=== PATIENT | female | born 1990 | race Caucasian/White ===

== ENCOUNTER → 2020-05-30 | Outpatient (REF) | payer OTHER ==
[~2020-05-30] MED LIST: BIRTH CONTROL PILLS PO; IBUP-1022 PO; LOPR1TAB6 PO; METF500T13 PO; ORTH1TAB8 PO
[2020-05-30 15:31] LABS: HEMATOCRIT 35.8 % (36.0-47.0); HEMOGLOBIN 12.3 g/dl (12.0-15.5); MEAN CORPUSCULAR HEMOGLOBIN 29.4 pg (27.0-33.0); MEAN CORPUSCULAR HGB CONC 34.4 g/dl (32.0-36.5); MEAN CORPUSCULAR VOLUME 85.6 fl (80.0-96.0); PLATELET COUNT, AUTOMATED 309 10^3/uL (150-450); RED BLOOD COUNT 4.18 10^6/uL (4.00-5.40); WHITE BLOOD COUNT 12.9 10^3/uL (4.0-10.0)
[2020-05-30 16:07] LABS: ALT/SGPT 21 U/L (12-78); BILIRUBIN,TOTAL 0.4 MG/DL (0.2-1.0); FREE T4 1.13 NG/DL (0.76-1.46); GLOMERULAR FILTRATION RATE > 60.0 (>60); LDH LACTATE DEHYDROGENASE 164 U/L (84-246); URIC ACID 4.4 MG/DL (2.6-6.0)
[2020-05-30 16:44] LABS: HIV 1&2 SCREEN CENTAUR NEGATIVE (NEGATIVE)
[2020-06-01 11:25] LABS: HEPATITIS C VIRUS ABY INDEX 0.1 INDEX (<0.8)
== END ==
LOC: M PLALAB 14:04
PROVIDERS: ATTEND Advanced Practice Midwife
DX: O24.919 Unspecified diabetes mellitus in pregnancy, unspecified trimester (principal)

== ENCOUNTER → 2020-07-31 | Outpatient (CLI) | payer OTHER ==
--- NOTE | 2020-08-17 08:53 | REP ---
COMPLETE OBSTETRICAL ULTRASOUND CLINICAL: Anatomic assessment. TECHNIQUE: Transabdominal obstetrical ultrasound with color Doppler evaluation. FINDINGS: Ultrasound examination demonstrates a single live intrauterine in variable presentation. motion was identified by the technologist. Placenta noted posteriorly/right lateral and grade 1 without evidence for placenta previa or abruption. Amniotic fluid is normal. Cervix measures 3.3 cm in length and appears closed. Gestational age by last menstrual period (LMP) 19 weeks 0 days. Estimated date of delivery 12/25/2020. Gestational age by current measurements 18 weeks 4 days with estimated date of delivery 12/28/2020. heart rate 155 beats per minute. Estimated weight by current measurements 256 grams (32nd percentile). Anatomical assessment demonstrates normal cranium, choroid plexus, ventricles, posterior fossa/cerebellum, cisterna magna, four chamber heart, stomach, kidneys, bladder, spine, extremities, and three-vessel cord/cord insertion. Limited evaluation of the facial features, cardiac ventricular outflow tracts, and diaphragm noted. IMPRESSION: Single live intrauterine in variable presentation demonstrating appropriate interval growth. Anatomical limitations as noted above may warrant reevaluation and follow-up. MTDD
== END ==
LOC: M WHC 07:53
PROVIDERS: ATTEND Advanced Practice Midwife
DX: Z34.02 Encounter for supervision of normal first pregnancy, second trimester (principal); Z3A.18 18 weeks gestation of pregnancy

== ENCOUNTER → 2020-08-17 | Outpatient (REF) | payer OTHER | LOC: M SFHCWAGY 13:14 | PROVIDERS: ATTEND Obstetrics & Gynecology | DX: Z3A.21 21 weeks gestation of pregnancy (principal) ==

== ENCOUNTER → 2020-08-31 | Outpatient (CLI) | payer OTHER ==
--- NOTE | 2020-08-31 11:22 | REP ---
INDICATION: F/U ANATOMY COMPARISON: 07/31/2020 TECHNIQUE: Transabdominal obstetrical ultrasound with color Doppler evaluation. FINDINGS: Examination demonstrates a single live intrauterine in cephalic presentation. motion is identified by technologist. Placenta is noted posterior/right lateral and grade 1 without evidence for placenta previa or abruption. Amniotic fluid volume is normal. Cervix measures 3.6 cm in length and appears closed. No evidence for nuchal cord. Gestational age by LMP 23 weeks 3 days with MARYLOU 12/25/2020. Gestational age by current measurements 22 weeks 4 days with MARYLOU 12/31/2020. FHR equals 146 beats per minute. Estimated weight 512 grams (12thpercentile). Anatomical assessment demonstrates normal structures including cranium, facial features, lungs, cardiac outflow tracts, diaphragm, stomach, cord insertion, kidneys/bladder, spine. IMPRESSION: Single live intrauterine in cephalic presentation. In conjunction with prior examination abdominal assessment is complete and normal. <Electronically signed by Chi Robb > 08/31/20 [id number]
== END ==
LOC: M WHC 08:17
PROVIDERS: ATTEND Obstetrics & Gynecology
DX: O24.312 Unspecified pre-existing diabetes mellitus in pregnancy, second trimester (principal); Z36.2 Encounter for other antenatal screening follow-up; Z3A.23 23 weeks gestation of pregnancy

== ENCOUNTER → 2020-09-14 | Outpatient (REF) | payer OTHER ==
[2020-09-14 10:56] LABS: HEMATOCRIT 35.8 % (36.0-47.0); HEMOGLOBIN 12.2 g/dl (12.0-15.5); MEAN CORPUSCULAR HEMOGLOBIN 30.3 pg (27.0-33.0); MEAN CORPUSCULAR HGB CONC 34.1 g/dl (32.0-36.5); MEAN CORPUSCULAR VOLUME 88.8 fl (80.0-96.0); PLATELET COUNT, AUTOMATED 272 10^3/uL (150-450); RED BLOOD COUNT 4.03 10^6/uL (4.00-5.40); WHITE BLOOD COUNT 13.3 10^3/uL (4.0-10.0)
[2020-09-14 11:25] LABS: HEMOGLOBIN A1c 5.8 %
== END ==
LOC: M PLALAB 09:07
PROVIDERS: ATTEND Specialist
DX: O24.012 Pre-existing type 1 diabetes mellitus, in pregnancy, second trimester (principal); Z3A.00 Weeks of gestation of pregnancy not specified

== ENCOUNTER → 2020-10-19 | Outpatient (CLI) | payer OTHER ==
--- NOTE | 2020-10-19 08:01 | REP ---
INDICATION: DIABETES,HYPERTENSION,GROWTH COMPARISON: 08/31/2020 TECHNIQUE: Transabdominal obstetrical ultrasound with color Doppler evaluation. FINDINGS: Examination demonstrates a single live intrauterine in cephalic presentation. motion is identified by technologist. Placenta is noted fundal and grade 2 without evidence for placenta previa or abruption. Amniotic fluid volume is normal. Cervix measures 3.1 cm in length and appears closed.. Gestational age by LMP 30 weeks 3 days with MARYLOU 12/25/2020. Gestational age by current measurements 28 weeks 1 day with MARYLOU 01/10/2021. FHR equals 134 beats per minute. BPD: 7.2 cm 29 weeks 0 days HC: 26.0 cm 28 weeks 2 days AC: 23.0 cm 27 weeks 3 days FL: 5.3 cm 28 weeks 0 days HL: 4.8 cm 28 weeks 0 days HC/AC: 1.13 Estimated weight 1124 grams (less than 3rdpercentile). PARRISH: 10.2 cm IMPRESSION: Single live intrauterine in cephalic presentation demonstrating less than expected interval growth. Correlation is required. No obvious sonographic abnormality noted. <Electronically signed by Chi Robb > 10/19/20 [id number]
== END ==
LOC: M WHC 06:25
PROVIDERS: ATTEND Obstetrics & Gynecology
DX: O24.313 Unspecified pre-existing diabetes mellitus in pregnancy, third trimester (principal); O10.913 Unspecified pre-existing hypertension complicating pregnancy, third trimester; Z3A.30 30 weeks gestation of pregnancy

== ENCOUNTER 2020-10-26 22:05 | Inpatient (IN) | payer OTHER ==
[~2020-10-26] VITALS: Ht 157.5 cm; Wt 102.1 kg
[2020-10-26 22:41] VITALS: BP 159/90
[2020-10-26 23:07] VITALS: BP 158/82
[2020-10-26 23:07] LABS: HEMATOCRIT 32.4 % (36.0-47.0); HEMOGLOBIN 10.9 g/dl (12.0-15.5); MEAN CORPUSCULAR HEMOGLOBIN 29.4 pg (27.0-33.0); MEAN CORPUSCULAR HGB CONC 33.6 g/dl (32.0-36.5); MEAN CORPUSCULAR VOLUME 87.3 fl (80.0-96.0); PLATELET COUNT, AUTOMATED 143 10^3/uL (150-450); RED BLOOD COUNT 3.71 10^6/uL (4.00-5.40); WHITE BLOOD COUNT 11.7 10^3/uL (4.0-10.0)
--- NOTE | 2020-10-26 23:11 | IPNPDOC ---
Text Note Date of Service The patient was seen on 10/26/20. NOTE Outpatient Subjective: Jessica is a 30 y/o at 31.3wks by LMP 03/20/20, EDC 12/25/2020. She presents to L&D today with a c/o elevated blood pressures at home 153-176/103-113 after taking her nightly Labetalol 200mg. Reports last meal at 5pm, and she took her insulin tonight as well. Denies headache, visual disturbances, epigastric pain, nausea/vomiting. Denies LOF, vaginal bleeding, contractions. Reports active movement. Obstetrical Hx.: Last growth U/S on 10/19/20 showed IUGR <3% Medical Hx.: Type 2 Diabetes on insulin, Hypertension, Hypothyroidism Surgical Hx.: Cholecystectomy 2014 Family Hx.: Cardiac defects, stroke, asthma Medications: Labetalol HCL 200mg BID Levothyroxine 25mcg Daily Novolin R 10 units at breakfast, 8 units at dinner Novolin N 20units at breakfast, 8 units at dinner Baby Aspirin 81mg Daily Vitamin and DHA 200mg daily Objective: VSS as below, BP 159/90 on arrival. General: Alert and oriented x3. Respiratory: Regular rate, no accessory muscle use. Abdomen: Soft, non tender. Extremities: +1 pitting edema in left leg to knee, +2 pitting edema in right leg to knee, no calf tenderness Neurologic: Grossly intact, DTRs +1 bilaterally. Fetus: Category 2 FHT, 150bpm baseline, minimal variability, no accelerations, no decelerations. Assessment: Category 2 FHT, Elevated BP with history of HTN, IUP at 31.3wks. Plan: 1. Preeclamptic labs, glucose, and HgbA1C 2. BPP and NST 3. Consult with Jaqueline Mathew CNM Oct 26, 2020 23:11
[2020-10-26 23:27] VITALS: BP 186/100
[2020-10-26 23:29] VITALS: BP 171/103
[2020-10-26 23:30] LABS: HEMOGLOBIN A1c 5.9 %
[2020-10-26 23:38] LABS: ALT/SGPT 62 U/L (12-78); BILIRUBIN,TOTAL 0.2 MG/DL (0.2-1.0); CREATININE FOR GFR 0.62 MG/DL (0.55-1.30); GLOMERULAR FILTRATION RATE > 60.0 (>60); GLUCOSE,RANDOM 145 MG/DL (LESS THAN 200); LDH LACTATE DEHYDROGENASE 386 U/L (84-246)
[2020-10-26 23:58] VITALS: BP 152/88
[2020-10-27] VITALS (30 sets, daily range): BP systolic 133–196; BP diastolic 77–115
--- NOTE | 2020-10-27 00:19 | REPVR ---
PROCEDURE INFORMATION: Exam: US Biophysical Profile Without Non-Stress Test Exam date and time: 10/26/2020 11:29 PM Age: 30 years old Clinical indication: Other: HTN, diabetes; ; Additional info: Iugr, HTN, diabetes TECHNIQUE: Imaging protocol: US biophysical profile without non-stress testing. COMPARISON: OBS LIMITED US 10/19/2020 7:05 AM FINDINGS: Gestation: Single viable intrauterine gestation. heart rate: heart rate is 156 bpm. Presentation: Vertex presentation. Placenta: Posterior fundal placenta. Amniotic fluid index: Amniotic fluid index is 13 cm. BIOPHYSICAL PROFILE: Breathin/2 Gross body movements: 2/2 tone: 2/2 Qualitative amniotic fluid: 2/2 Biophysical Profile Score: 8/8 MATERNAL ANATOMY: Cervix: Cervical length is 4 cm. IMPRESSION: Single viable intrauterine gestation. Total biophysical profile score is 8/8. Electronically signed by: Errol Shin On 10/27/2020 00:19:23 AM
[2020-10-27 00:34] LABS: TOTAL PROTEIN,RANDOM URINE 101.4 MG/DL (0.0-12.0)
--- NOTE | 2020-10-27 00:51 | IPNPDOC ---
Text Note Date of Service The patient was seen on 10/27/20. NOTE Outpatient Current BP 149/86 Category 2 tracing, FHR 145bpm baseline, minimal variability, no decelerations, no accelerations. No UC noted by [place]. Consulted with Dr. Fairbanks about patient status including trending labs and current BPP 06/23. Plan to start 24hr urine, monitor BPs overnight, and give Betamethasone. VS,Fishbone, I+O VS, Fishbone, I+O Laboratory Tests 10/26/20 22:58 Vital Signs Date Time Temp Pulse Resp B/P (MAP) Pulse Ox O2 Delivery O2 Flow Rate FiO2 10/26/20 23:07 75 18 158/82 (107) Jaqueline Celestin CNM Oct 27, 2020 00:51
[2020-10-27] MEDS ORDERED: BETAMETHASONE SOLUSPAN 6MG/ML 5ML VIAL (J0702 PER 3MG) IM SCH (01:00)
[2020-10-27] MEDS ORDERED: LABETALOL 100MG/20ML VIAL IV STA ×2 (03:45→04:46)
[2020-10-27] MEDS ORDERED: LR 1,000 ML IV SCH ×2 (04:15→05:33)
[2020-10-27] MEDS ORDERED: hydrALAZINE 20MG/ML 1ML VIAL (J0360 PER 20MG) IV ONE ×3 (05:00→08:00)
[2020-10-27] MEDS ORDERED: MAG Sulf (L&D) 4 GM/100 ML 4 GM in IV 1 EA IV ONE (05:45)
[2020-10-27] MEDS ORDERED: MAG Sulf (OBGYN) 20GM/500ML 20,000 MG in IV 1 EA IV SCH (06:00)
[2020-10-27] MEDS ORDERED: LEVOTHYROXINE 25MCG TABLET (0.025MG) PO SCH (06:00)
--- NOTE | 2020-10-27 06:04 | HPEPDOC ---
Obstetrical History & Physical General Date of Admission 10/27/20 History of Present Illness Jessica is a 30 y/o at 31.4 weeks EDC 12/25/2020 by LMP 03/20/20. She presented to L&D with elevated BPs at home after taking her nightly Labetalol. History is significant for essential HTN; Type 2 DM on metformin prior to switched to insulin; and Hypothyroidism. Labs collected tonight support diagnosis of preeclampsia, see below. She was given 2 doses of Labetalol IVP, then Hydralazine IVP due to severe range BPs without effect. Per consult with Dr. Fairbanks a 24hr urine was started and Magnesium is to be started . She denies chest pain, SOB, epigastric pain, headache, visual disturbances. Reports active movement and denies vaginal bleeding, contractions, LOF. Chief Complaint: Pre-eclamsia Information Provided By: Patient Age: 30 : 1 (0) Term: 0 (0) Pre-term: 0 Abortions: 0 Livin Care Care: Good Care Dating Final EDC: Dec 25, 2020 Final EDC by: LMP LMP: March 20, 2020 Weeks + Days: 31.4 Antepartum Course Height (inches): 62 Pre- weight (lbs.): 195 Admission Weight (lbs.): 225 Change in Weight (lbs.): 30 Past Medical History Past Obstetrical History : Past Obstetrical History: Primgravida [employer]DER History: No pertinent history Past Medical History Medical History Hypertension Type 2 Diabetes Mellitus Hypothyroidism Surgical History: Gallbladder Family History Significant Family History: Asthma, Other (Stroke, Cardiac defects - she is negative for defects as she reports childhood echo) Social History Marital Status: Family situation: Spouse/partner home Psychosocial History: No pertinent psych hx * Smoker: non-smoker Alcohol: Denies Drugs: denies Allergies Coded Allergies: No Known Drug Allergies (Verified Allergy, Unknown, 10/27/20) Medications Scheduled Metformin HCl (Metformin HCl) 500 Mg Tab, 500 MG PO BID for DIABETES Metoprolol Tartrate (Lopressor) 50 Mg Tab, 25 MG PO BID for HYPERTENSION Norgestimate-Ethinyl Estradiol (Ortho Tri-Cyclen 28 Tablet) 1 Tab Tab, 1 TAB PO DAILY for birthcontrol Physical Examination Physical Examination GENERAL: Alert and oriented times three. BREAST: . ABDOMEN: Gravid and non-tender to touch. FETUS: Is vertex (VTX) by ultrasound, fetus is vertex (VTX) by Alec. SVE: Deferred HEART RATE: Regular rate and rhythm. LUNGS: Clear to auscultation (CTA) bilaterally EXTREMITIES: +2 pitting edema bilaterally. No clonus. Deep tendon reflexes (DTRs) + 3, brisk bilaterally. Vital Signs/I&O Vital Signs Date Time Temp Pulse Resp B/P (MAP) Pulse Ox O2 Delivery O2 Flow Rate FiO2 10/27/20 04:37 66 178/112 10/27/20 01:21 98.1 18 Laboratory Data 24H LABS Laboratory Tests 2 10/26/20 22:58: Nucleated Red Blood Cells % (auto) 0.0, Glomerular Filtration Rate > 60.0, Random Glucose 145, Uric Acid 5.0, Total Bilirubin 0.2, Aspartate Amino Transf (AST/SGOT) 41H, Alanine Aminotransferase (ALT/SGPT) 62, Lactate Dehydrogenase 386H 10/26/20 23:01: Estimated Mean Plasma Glucose 123H, Hemoglobin A1c 5.9 10/26/20 23:48: Urine Random Creatinine 171.0, Urine Random Total Protein 101.4H CBC/BMP Laboratory Tests 10/26/20 22:58 Pertinent Laboratoy Data Blood Type: B+ RBC Antibody Screen: Negative HIV: Negative Hepatitis B: Negative Hepatitis C: Negative Rapid Plasma Reagin: Nonreactive Rubella: Immune (Equivocal) Chlamydia/Gonorrhea: Negative Group B Streptococcus: Unknown Anatomy Ultrasound Normal Anatomy: Yes (per note by Dr. Kinney in record) Other Ultrasounds 10/27/20 - BPP 8/8, S/D 3.09, PARRISH 13cm, vertex presentation. 10/19/20 - Growth Sono shows <3%, EFW 1124g, PARRISH 10.2cm Steroid Therapy Steroid Therapy: Yes Date #1: Oct 27, 2020 Reason Preeclampsia at 31.4wks Assessment Heart Rate (FHR): 140 Variability: Moderate Accelerations: Present Decelerations: None Tocometer Contractions: No Multi-drug resistant Organism: No history of MDRO Assessment/Plan Assessment IUP at 31.4 weeks EGA Preeclampsia History of Type 2 DM currently on insulin, HTN, Hypothyroidism GBS Unknown Plan Per Consult with Dr. Fairbanks Admit and orient to Labor and Delivery. Rfid Engineer and consent. Diet: Clear liquids. Group B Streptococcus (GBS) unknown. Labs and intravenous (IV) per unit protocol. 24hr urine in progress. Repeat preeclamptic labs at 0700. Counseled on Magnesium sulfate and Preeclampsia diagnosis. Lactated Ringers (LR): Run at 75 mL/hr for total of 125 mL/hr. Magnesium Sulfate 4g loading dose, then 2g/hr. Betamethasone dose #1 given on 10/27/20 Consider transfer or delivery prn Jaqueline Celestin CNM Oct 27, 2020 06:04
[2020-10-27 07:30] LABS: HEMATOCRIT 36.1 % (36.0-47.0); MEAN CORPUSCULAR HEMOGLOBIN 29.3 pg (27.0-33.0); MEAN CORPUSCULAR HGB CONC 33.2 g/dl (32.0-36.5); MEAN CORPUSCULAR VOLUME 88.3 fl (80.0-96.0); PLATELET COUNT, AUTOMATED 159 10^3/uL (150-450); RED BLOOD COUNT 4.09 10^6/uL (4.00-5.40); WHITE BLOOD COUNT 15.5 10^3/uL (4.0-10.0)
[2020-10-27] MEDS ORDERED: HumuLIN R (REGULAR) INSULIN (NovoLIN R) **100U/ML** PER UNIT SC SCH ×2 (07:30→17:30)
[2020-10-27] MEDS ORDERED: HumuLIN N INSULIN (NovoLIN N) PER UNIT SC SCH ×2 (07:30→17:30)
[2020-10-27 07:55] LABS: ALT/SGPT 56 U/L (12-78); BILIRUBIN,TOTAL 0.3 MG/DL (0.2-1.0); CREATININE FOR GFR 0.56 MG/DL (0.55-1.30); GLOMERULAR FILTRATION RATE > 60.0 (>60); LDH LACTATE DEHYDROGENASE 257 U/L (84-246); URIC ACID 4.9 MG/DL (2.6-6.0)
[2020-10-27] MEDS ORDERED: LABETALOL 200 MG TAB PO SCH (09:00)
[2020-10-27] MEDS ORDERED: INSUN SC ×2 (09:32)
[2020-10-27] MEDS ORDERED: [UNRECOGNIZED DRUG - CODE] PO (09:32)
[2020-10-27] MEDS ORDERED: ASPI81CH33 PO (09:32)
[2020-10-27] MEDS ORDERED: INSUR SC (09:32)
[2020-10-27] MEDS ORDERED: LEVO25TA5 PO (09:32)
[2020-10-27] MEDS ORDERED: LABE200T32 PO (09:32)
--- NOTE | 2020-10-27 11:09 | IPNPDOC ---
Text Note Date of Service The patient was seen on 10/27/20. NOTE Decision for Transfer to [place] Jessica is a 30yo with SIUP at 31w4d by lmp c/w 11wk u/s who presented overnight with elevated bp's and was found to have CHTN with superimposed severe pre-eclampsia. She takes labetalol 200mg BID, but upon checking her bp at home last night noted systolic bp 160's and was instructed to come in. Upon arrival she was noted to have severe range bp's, though no other sx (no CULLEN/vision changes/abd pain). Highest noted bp 196/115. She received 2 doses of IV labetalol (20mg then 40mg) and then 5mg of IV Hydralazine, after which IV MgSO4 was initiated (approx 0500 this morning). Urine protein:creatinine is 0.59 (unfortunately no early urine protein to compare to). She had BPP during evaluation which was 88, cephalic presentation, PARRISH 13cm. She received first dose of betamethasone at 0200. GBS swab was obtained. Her history is otherwise significant for: 1) IUGR <3%ile (1124g) diagnosed 10/19, for which she started weekly BPP/dopplers 2) Pre-gestational diabetes, for which she was taking metformin prior to , and then switched to insulin (current regimen am N20 R10, pm N8 R8). Her HgbA1c on 09/14 was 5.8 and 10/26 5.9, indicating very good glycemic control) 3) Hypothyroidism, taking levothyroxine 25mcg QD 4) Obesity, starting BMI 35.9 PShx: cholecystectomy NKDA Meds: as listed above, PNV Steward/Stewardess Second Class: no hx of STI, LMP 03/20/20, unknown date of last pap Social: single (FOB involved), non-smoker, no illicit drugs/alcohol Vitals: bp's since initiation of MgSO4 have been 130's-140's/70's-80's General: WDWN, resting in bed comfortably, slightly flushed Abdomen: soft, gravid, NTTP Extremities: trace edema BLE, SCDs in place and functioning. Normal reflexes. SCE: closed/thick/high CEFM: Cat I FHRT with bl 130, +accels, -decels, mod nydia [place]: no ctx Labs: 10/26 urine prot:creat 0.59 HgbA1c 5.9 LDH 257 AST 27, ALT 56 uric acid 4.9 creatinine 0.56 H/H 10.9/32.4, plt 143 (notably 09/14 plt were 272) Assessment: Jessica is a 30yo with SIUP at 31w4d by lmp c/w 11wk u/s with PMhx significant for CHTN, IUGR <3%ile, pre-existing diabetes (well controlled), hypothyroidism and obesity with new diagnosis of superimposed pre-eclampsia with severe features based on severe range bp's requiring IV anti-HTN medication and urine protein:creat 0.59. Only other lab value of note is plt 143 when previously on 09/14 they were 272. Normal serum creat and LFTs. She was initiated on IV MgSO4, received first dose of betamethasone and bp's have stabilized. Reassuring status with BPP 06/23 PARRISH 13cm, cephalic. Plan: -Dr. Noel has graciously accepted transfer to [place] based on patient's gestational age and higher level NICU need -Will continue IV MgSO4, LR and CEFM in the ambulance and RN will be in attendance -Discussed plan of care with patient and her partner who are in agreement, all questions answered MD STEF Golden,[place] I+O VS, [place] I+O Laboratory Tests 10/26/20 22:58 10/27/20 07:09 Vital Signs Date Time Temp Pulse Resp B/P (MAP) Pulse Ox O2 Delivery O2 Flow Rate FiO2 10/27/20 09:49 86 133/78 (96) 10/27/20 07:30 97.4 18 Room Air Myrna Fairbanks MD Oct 27, 2020 10:46
[2020-10-27] MEDS ORDERED: ASPIRIN 81 MG ENTERIC TAB PO SCH (20:00)
== END 2020-10-27 11:45 | disposition short-term general hospital (02) | DRG 566 ==
LOC: M LDO 22:05 → M LDI 10-27 06:00
PROVIDERS: ADMIT Advanced Practice Midwife; ATTEND Advanced Practice Midwife
DX: O11.3 Pre-existing hypertension with pre-eclampsia, third trimester (principal); O24.313 Unspecified pre-existing diabetes mellitus in pregnancy, third trimester; E66.9 Obesity, unspecified; O99.213 Obesity complicating pregnancy, third trimester; O10.013 Pre-existing essential hypertension complicating pregnancy, third trimester; O99.283 Endocrine, nutritional and metabolic diseases complicating pregnancy, third trimester; E03.9 Hypothyroidism, unspecified; Z3A.31 31 weeks gestation of pregnancy; Z79.4 Long term (current) use of insulin; Z79.82 Long term (current) use of aspirin; Z79.899 Other long term (current) drug therapy

== ENCOUNTER → 2020-12-26 | Outpatient (REF) | payer OTHER ==
[~2020-12-26] MED LIST changes: +ASPI81CH33 PO; +INSUN SC; +INSUR SC; +LABE200T32 PO; +LEVO25TA5 PO; +[UNRECOGNIZED DRUG - CODE] PO
[2020-12-26 17:41] LABS: CHLAMYDIA DNA AMPLIFICATION NEGATIVE (NEGATIVE); GC DNA AMPLIFICATION NEGATIVE (NEGATIVE)
== END ==
LOC: M SFHCWAGY 15:13
PROVIDERS: ATTEND Advanced Practice Midwife
DX: Z30.430 Encounter for insertion of intrauterine contraceptive device (principal)

== ENCOUNTER → 2022-08-28 | Outpatient (REF) | payer OTHER ==
[~2022-08-28] MED LIST changes: -LABE200T32 PO; +LABE200T5 PO
== END ==
LOC: M SFHCWAGY 17:41
PROVIDERS: ATTEND Nurse Practitioner Family
DX: Z12.4 Encounter for screening for malignant neoplasm of cervix (principal)

== ENCOUNTER → 2023-09-28 | Outpatient (CLI) | payer BC, OTHER ==
[2023-09-28 13:51] LABS: HEMATOCRIT 34.5 % (36.0-47.0); HEMOGLOBIN 11.9 g/dl (12.0-15.5); MEAN CORPUSCULAR HEMOGLOBIN 29.6 pg (27.0-33.0); MEAN CORPUSCULAR HGB CONC 34.5 g/dl (32.0-36.5); MEAN CORPUSCULAR VOLUME 85.8 fl (80.0-96.0); PLATELET COUNT, AUTOMATED 240 10^3/uL (150-450); RED BLOOD COUNT 4.02 10^6/uL (4.00-5.40); WHITE BLOOD COUNT 8.6 10^3/uL (4.0-10.0)
[2023-09-28 14:16] LABS: TOTAL PROTEIN,RANDOM URINE 12.6 MG/DL (0.0-14.0)
[2023-09-28 14:20] LABS: CREATININE,RANDOM URINE 135.6 MG/DL; URIC ACID 4.9 MG/DL (3.1-7.8)
[2023-09-28 14:22] LABS: LDH LACTATE DEHYDROGENASE 261 U/L (120-246)
[2023-09-28 14:23] LABS: ALT/SGPT 31 U/L (7.0-40); AST/SGOT 17 U/L (<34); BILIRUBIN,TOTAL 0.4 MG/DL (0.3-1.2); CREATININE FOR GFR 0.35 MG/DL (0.55-1.30); GLOMERULAR FILTRATION RATE > 60.0 (>60)
[2023-09-28 14:54] LABS: HIV 1&2 SCREEN NEGATIVE (NEGATIVE)
[2023-09-28 14:55] LABS: HEMOGLOBIN A1c 8.7 % (4.0-6.0)
[2023-09-28 15:02] LABS: HEPATITIS C VIRUS ABY INDEX 0.04 INDEX (<0.8)
[2023-09-28 15:25] LABS: CHLAMYDIA DNA AMPLIFICATION NEGATIVE (NEGATIVE); GC DNA AMPLIFICATION NEGATIVE (NEGATIVE)
== END ==
LOC: M PLALAB 08:48
PROVIDERS: ATTEND Obstetrics & Gynecology
DX: Z34.81 Encounter for supervision of other normal pregnancy, first trimester (principal)

== ENCOUNTER → 2023-10-13 | Outpatient (CLI) | payer BC, OTHER | LOC: M PLALAB 09:10 | PROVIDERS: ATTEND Obstetrics & Gynecology | DX: Z36.89 Encounter for other specified antenatal screening (principal); Z3A.12 12 weeks gestation of pregnancy ==

== ENCOUNTER → 2023-11-24 | Outpatient (CLI) | payer BC, OTHER | LOC: M WHC 10:05 | PROVIDERS: ATTEND Obstetrics & Gynecology | DX: O10.012 Pre-existing essential hypertension complicating pregnancy, second trimester (principal); O32.1XX0 Maternal care for breech presentation, not applicable or unspecified; Z3A.20 20 weeks gestation of pregnancy ==

== ENCOUNTER → 2023-12-22 | Outpatient (CLI) | payer BC, OTHER | LOC: M WHC 08:21 | PROVIDERS: ATTEND Obstetrics & Gynecology | DX: O36.5992 Maternal care for other known or suspected poor fetal growth, unspecified trimester, fetus 2 (principal); Z3A.22 22 weeks gestation of pregnancy; O32.1XX0 Maternal care for breech presentation, not applicable or unspecified ==

== ENCOUNTER → 2023-12-30 | Outpatient (CLI) | payer BC, OTHER | LOC: M WHC 12:06 | PROVIDERS: ATTEND Obstetrics & Gynecology | DX: O36.5992 Maternal care for other known or suspected poor fetal growth, unspecified trimester, fetus 2 (principal); Z3A.25 25 weeks gestation of pregnancy; O32.1XX0 Maternal care for breech presentation, not applicable or unspecified ==

== ENCOUNTER → 2024-01-05 | Outpatient (CLI) | payer BC, OTHER | LOC: M WHC 08:30 | PROVIDERS: ATTEND Obstetrics & Gynecology | DX: Z53.9 Procedure and treatment not carried out, unspecified reason (principal) ==

== ENCOUNTER 2024-01-08 09:21 | Inpatient (IN) | payer BC, OTHER ==
[~2024-01-08] VITALS: Ht 157.5 cm; Wt 100.7 kg
[2024-01-08] VITALS (59 sets, daily range): BP systolic 131–232; BP diastolic 77–127; O2SAT 95–98
[2024-01-08 10:12] LABS: HEMATOCRIT 33.1 % (36.0-47.0); HEMOGLOBIN 11.6 g/dl (12.0-15.5); MEAN CORPUSCULAR HEMOGLOBIN 29.7 pg (27.0-33.0); MEAN CORPUSCULAR VOLUME 84.7 fl (80.0-96.0); PLATELET COUNT, AUTOMATED 241 10^3/uL (150-450); RED BLOOD COUNT 3.91 10^6/uL (4.00-5.40); WHITE BLOOD COUNT 9.6 10^3/uL (4.0-10.0)
[2024-01-08] MEDS: LABETALOL 100MG/20ML VIAL IV STA ×4 (10:12→10:54)
[2024-01-08] MEDS ORDERED: MAGNESIUM SULFATE 4% INJ 20GM/500ML (40MG/ML) As Ordered ONE (10:17)
[2024-01-08] MEDS ORDERED: MAGNESIUM *L&D* 4GM/100ML BAG (40MG/ML) As Ordered ONE (10:17)
[2024-01-08] MEDS: MAG Sulf (L&D) 4 GM/100 ML 4 GM in IV 1 EA IV ONE (10:29)
[2024-01-08] MEDS: MAG Sulf (OBGYN) 20GM/500ML 20,000 MG in IV 1 EA IV SCH (10:29)
[2024-01-08 10:31] LABS: URIC ACID 6.8 MG/DL (3.1-7.8)
[2024-01-08 10:33] LABS: LDH LACTATE DEHYDROGENASE 192 U/L (120-246)
[2024-01-08 10:34] LABS: ALT/SGPT 13 U/L (7.0-40); AST/SGOT 11 U/L (<34); BILIRUBIN,TOTAL 0.6 MG/DL (0.3-1.2); CREATININE FOR GFR 0.52 MG/DL (0.55-1.30); GLOMERULAR FILTRATION RATE > 60.0 (>60)
[2024-01-08] MEDS: BETAMETHASONE SOLUSPAN 6MG/ML 5ML VIAL IM SCH (10:36)
[2024-01-08 10:44] LABS: CREATININE,RANDOM URINE 180.3 MG/DL
[2024-01-08] MEDS ORDERED: LABETALOL 100MG/20ML VIAL IV STA (10:50)
[2024-01-08 10:59] LABS: TOTAL PROTEIN,RANDOM URINE 183.5 MG/DL (0.0-14.0)
[2024-01-08] MEDS: hydrALAZINE 20MG/ML 1ML VIAL IV STA ×2 (11:12→11:44)
[2024-01-08] MEDS ORDERED: CARBOPROST TROMETHAMINE 250 MCG/ML AMP IM PRN (12:15)
[2024-01-08] MEDS ORDERED: OXYTOCIN DRIP 30 UNITS in IV 1 EA IV PRN (12:15)
[2024-01-08] MEDS ORDERED: TRANEXAMIC ACID INJection 1,000 MG in NS 100 ML IV PRN (12:15)
[2024-01-08] MEDS ORDERED: MORPHINE PRES-FREE INJ 10 MG/10 ML VIAL As Ordered ONE (12:38)
[2024-01-08] MEDS ORDERED: OXYTOCIN 30UNITS IN 0.9% NaCl 500ML IV BAG As Ordered ONE (12:39)
[2024-01-08] MEDS ORDERED: ONDANSETRON 4MG 2ML VIAL As Ordered ONE (12:40)
[2024-01-08] MEDS: BICITRA 30ML SOLN UDC PO ONE (12:45)
[2024-01-08] MEDS: ceFAZolin SOD 2 GM in IV 1 EA IV ONE (12:45)
[2024-01-08] MEDS: LR 1,000 ML IV SCH ×3 (13:05→14:55)
[2024-01-08] MEDS ORDERED: ACETAMINOPHEN 1000MG 100ML IV BAG As Ordered ONE (13:31)
[2024-01-08] MEDS ORDERED: KETOROLAC 60MG 2ML VIAL As Ordered ONE (13:49)
[2024-01-08 14:01] LABS: CORD GAS ABE A -4.7; CORD GAS O2 SAT A 47.4 %; CORD GAS PCO2 A 47.5 mmHg; CORD GAS PH A 7.284 UNITS; CORD GAS PO2 A 22.8 mmHg; CORD GAS SBC A 19.6 MMOL/L; CORD GAS TCO2 A 23.5 MMOL/L
[2024-01-08 14:02] LABS: CORD GAS ABE V -6.9; CORD GAS HCO3 V 19.1 MMOL/L; CORD GAS O2 SAT V 93.1 %; CORD GAS PCO2 V 40.2 mmHg; CORD GAS PH V 7.295 UNITS; CORD GAS PO2 V 61.9 mmHg; CORD GAS SBC V 18.8 MMOL/L; CORD GAS TCO2 V 20.3 MMOL/L
[2024-01-08] MEDS ORDERED: ceFAZolin 1GM VIAL As Ordered ONE (14:11)
[2024-01-08] MEDS ORDERED: ACETAMINOPHEN 500 MG TAB PO PRN (14:40)
[2024-01-08] MEDS ORDERED: MORPHINE 4 MG/ML 1ML VIAL IV PRN (14:40)
[2024-01-08] MEDS ORDERED: RHOGAM 300MCG (1500IU) INJ IM SCH (14:40)
[2024-01-08] MEDS ORDERED: SIMETHICONE 80MG CHEW TAB PO PRN (14:40)
[2024-01-08] MEDS: OXYTOCIN DRIP 30 UNITS in IV 1 EA IV SCH (14:40)
[2024-01-08] MEDS ORDERED: ANUSOL HC CREAM 30GM TOP PRN (14:40)
[2024-01-08] MEDS ORDERED: PERCOCET 5MG/325MG TAB PO PRN ×2 (14:40)
[2024-01-08] MEDS ORDERED: fentaNYL 100 MCG/2 ML INJECTION IV PRN (14:55)
[2024-01-08] MEDS ORDERED: oxyCODONE 5MG TAB PO PRN (14:55)
[2024-01-08] MEDS ORDERED: ONDANSETRON 4MG 2ML VIAL IV PRN (14:55)
[2024-01-08] MEDS: SLF 3 ML SYR IV SCH (14:55)
[2024-01-08] MEDS ORDERED: NALOXONE INJ 0.4MG/1ML VIAL IV PRN ×2 (14:55)
[2024-01-08] MEDS ORDERED: diphenhydrAMINE 50MG/ML VIAL IV PRN (14:55)
[2024-01-08] MEDS ORDERED: METOCLOPRAMIDE INJ 10MG/2ML VIAL IV PRN (14:55)
[2024-01-08] MEDS ORDERED: **NOTE PATIENT COMMENT** MISC XX SCH (14:55)
[2024-01-08] MEDS: LABETALOL 200 MG TAB PO SCH (17:30)
[2024-01-08] MEDS: ONDANSETRON 4MG 2ML VIAL IV PRN (18:03)
[2024-01-08] MEDS: NIFEdipine 10 MG CAP PO ONE (19:53)
[2024-01-08] MEDS: KETOROLAC 30 MG/ML 1ML VIAL IV SCH (20:04)
[2024-01-08] MEDS: NIFEdipine 10 MG CAP PO STA (20:27)
[2024-01-08] MEDS: HumuLIN R (REGULAR) INSULIN (NovoLIN R) **100U/ML** PER UNIT SC SCH (21:00)
[2024-01-08] MEDS: DOCUSATE SODIUM 100MG CAPSULE PO SCH (21:21)
[2024-01-08] MEDS: ENOXAPARIN 40MG/0.4ML SYRINGE (J1650 PER 10MG) SC SCH (21:21)
[2024-01-08] MEDS: HumuLIN N INSULIN (NovoLIN N) PER UNIT SC SCH (21:33)
[2024-01-09] VITALS (20 sets, daily range): BP systolic 119–157; BP diastolic 70–92; TEMP 97.6; O2SAT 96–97
[2024-01-09] MEDS: LEVOTHYROXINE 25MCG TABLET (0.025MG) PO SCH (06:26)
[2024-01-09] MEDS ORDERED: HumuLIN N INSULIN (NovoLIN N) PER UNIT SC SCH (07:30)
[2024-01-09] MEDS: HumuLIN R (REGULAR) INSULIN (NovoLIN R) **100U/ML** PER UNIT SC SCH (07:38)
[2024-01-09] MEDS: HumuLIN N INSULIN (NovoLIN N) PER UNIT SC SCH (08:10)
[2024-01-09] MEDS: PRENATAL VITAMINS CHEWABLE TABLET PO SCH (08:50)
[2024-01-09] MEDS: NIFEdipine 30MG XL TAB PO SCH (08:51)
[2024-01-09] MEDS ORDERED: ENOXAPARIN 40MG/0.4ML SYRINGE (J1650 PER 10MG) SC SCH (09:00)
[2024-01-09] MEDS: IBUPROFEN 800 MG TAB PO SCH (17:14)
[2024-01-09] MEDS: MOM 30ML SUSPENSION UDC PO PRN (17:15)
[2024-01-10 02:00] VITALS: BP 140/73; O2SAT 95
[2024-01-10 06:00] VITALS: BP 139/74; O2SAT 97
[2024-01-10] MEDS: MEASLES,MUMPS,RUBELLA VACCINE INJ (MMR-II) SC.IMMUN ONE (09:00)
[2024-01-10 09:06] VITALS: BP 147/75
[2024-01-10] MEDS: BOOSTRIX VACCINE (TETANUS/DIPHTH/ACEL. PERTUSSIS) 0.5ML SYR IM.IMMUN ONE (09:08)
[2024-01-10] MEDS ORDERED: IBUP80TA PO (12:46)
[2024-01-10] MEDS ORDERED: COLA100C5 PO (12:46)
[2024-01-10] MEDS ORDERED: PERCOCET PO (12:47)
== END 2024-01-10 15:00 | disposition home or self-care (01) | DRG 540 ==
LOC: M LDO 09:21 → M LDI 12:10 → M OBS 01-09 14:57
PROVIDERS: ADMIT Advanced Practice Midwife; ATTEND Obstetrics & Gynecology
PROC: 10D00Z1 Extraction of Products of Conception, Low, Open Approach (ICD-10-PCS; principal; 2024-01-08 13:03)
DX: O11.4 Pre-existing hypertension with pre-eclampsia, complicating childbirth (principal); O24.02 Pre-existing type 1 diabetes mellitus, in childbirth; O36.5932 Maternal care for other known or suspected poor fetal growth, third trimester, fetus 2; O34.211 Maternal care for low transverse scar from previous cesarean delivery; O99.284 Endocrine, nutritional and metabolic diseases complicating childbirth; O10.02 Pre-existing essential hypertension complicating childbirth; E03.9 Hypothyroidism, unspecified; Z79.4 Long term (current) use of insulin; Z79.890 Hormone replacement therapy; Z79.899 Other long term (current) drug therapy; Z37.0 Single live birth; Z3A.26 26 weeks gestation of pregnancy